=== PATIENT | male | born 1945 | race Hispanic/Latino ===

== ENCOUNTER 2017-05-15 11:18 | Day surgery (SDC) | payer MEDICARE ==
[2017-05-14 16:26] VITALS: BP 157/68
[2017-05-14 16:34] LABS: APPEARANCE,URINE Clear (CLEAR); BILIRUBIN,URINE Negative (NEGATIVE); COLOR,URINE Yellow (YELLOW); GLUCOSE, URINE (UA) Negative (NEGATIVE); KETONES,URINE Negative (NEGATIVE); LEUKOCYTE ESTERASE ,URINE Negative (NEGATIVE); NITRATE,URINE Negative (NEGATIVE); OCCULT BLOOD,URINE Negative (NEGATIVE); PH,URINE 5.5 (5.0-8.0); PROTEIN,URINE Negative (NEGATIVE)
[2017-05-14 16:35] LABS: BASOPHILS % (AUTO) 0.9 % (0.0-5.0); EOSINOPHILS % (AUTO) 3.7 % (0.0-8.0); HEMATOCRIT 38.9 % (42-54); LYMPHOCYTES % (AUTO) 33.9 % (21.0-51.0); MEAN CORPUSCULAR HEMOGLOBIN 32.5 pg (27.0-33.0); MEAN CORPUSCULAR HGB CONC 36.1 g/dL (32.0-36.0); NEUTROPHILS % (AUTO) 54.5 % (40.0-77.0); PLATELET COUNT (AUTO) 185 K/uL (130-400); RED BLOOD CELL COUNT(AUTO) 4.32 MIL/uL (4.50-6.20); RED CELL DISTRIBUTION WIDTH 12.9 % (11.0-15.5); WHITE BLOOD COUNT (AUTO) 6.2 K/uL (4.8-10.8)
[2017-05-14 16:42] LABS: CREATININE 1.2 mg/dL (0.5-1.5); POTASSIUM 3.7 mmol/L (3.5-5.1)
[2017-05-14 17:19] LABS: INR 1.06 (0.85-1.15); PROTHROMBIN TIME 10.9 SEC (9.6-11.6)
[2017-05-14 17:20] LABS: PARTIAL THROMBOPLASTIN TIME 26.3 SEC (26.3-35.5)
[2017-05-15] VITALS (17 sets, daily range): BP systolic 114–156; BP diastolic 62–84
[~2017-05-15] VITALS: Ht 171.4 cm; Wt 97.9 kg
[2017-05-15] MEDS: CEFAZOLIN SODIUM 1 GM VIAL IVP ONE ×2 (08:00→14:18)
[~2017-05-15 11:18] MED LIST: ACET-66 PO; ENAL10TA PO; OXYC5CAP19 PO; RIVA10TA PO; TERA5CAP4 PO; VIT D3 PO; WATER FOR INJECTION,STERILE 20 ML VIAL IJ ONE
[2017-05-15] MEDS ORDERED: LACTATED RINGERS 1000ML 1,000 ML IV ONE (12:05)
[2017-05-15] MEDS ORDERED: CEFAZOLIN SODIUM 1 GM VIAL ONE (12:07)
[2017-05-15] MEDS ORDERED: CHOL20004 PO (12:23)
[2017-05-15] MEDS ORDERED: TERA10CA4 PO (12:23)
[2017-05-15] MEDS ORDERED: ENAL20TA PO (12:23)
[2017-05-15] MEDS ORDERED: LIDOCAINE PF 2% 5ML ABBOJECT ONE (12:32)
[2017-05-15] MEDS ORDERED: DEXAMETHASONE SOD PHOSPHATE 10MG/ML 1ML VIAL ONE (12:32)
[2017-05-15] MEDS ORDERED: GLYCOPYRROLATE 0.2 MG/ML 5 ML VIAL ONE ×2 (12:32→17:21)
[2017-05-15] MEDS ORDERED: MIDAZOLAM HCL 1 MG/ML 2ML VIAL ONE (12:32)
[2017-05-15] MEDS ORDERED: PROPOFOL 10 MG/ML 20ML VIAL IV ONE (12:32)
[2017-05-15] MEDS ORDERED: FENTANYL CITRATE PF 50 MCG/1 ML 2ML VIAL ONE (12:33)
[2017-05-15] MEDS ORDERED: OXYCODONE HCL 10 MG TAB.SR.12H PO ONE (13:29)
[2017-05-15] MEDS ORDERED: KETOROLAC TROMETHAMINE 15MG/ML ONE (13:29)
[2017-05-15] MEDS ORDERED: ACETAMINOPHEN EXTRA STRENGTH 500 MG TABLET ONE (13:29)
[2017-05-15] MEDS ORDERED: CELECOXIB 200 MG CAP ONE (13:29)
[2017-05-15] MEDS ORDERED: TRANEXAMIC ACID 1000MG/10ML IV ONE (14:14)
[2017-05-15] MEDS: CEFAZOLIN SODIUM 1 GM VIAL ONE ×2 (14:44→14:45)
[2017-05-15] MEDS ORDERED: MEPERIDINE-PF 25 MG/ML SYG ONE (16:26)
[2017-05-15] MEDS ORDERED: HYDR-309 PO (17:28)
[2017-05-15] MEDS ORDERED: CEPH-578 PO (17:29)
[2017-05-15] MEDS ORDERED: NAPR375T6 PO (17:30)
== END 2017-05-15 18:32 | disposition home or self-care (01) ==
LOC: DAHIP 11:18 → DAH 11:18 → UNDOADMIN 11:18 → EDSTATUS 16:00 → DAH 18:26
PROVIDERS: ATTEND Orthopaedic Surgery
DX: M75.101 Unspecified rotator cuff tear or rupture of right shoulder, not specified as traumatic (principal); F43.10 Post-traumatic stress disorder, unspecified; I10 Essential (primary) hypertension; I49.3 Ventricular premature depolarization; E66.01 Morbid (severe) obesity due to excess calories; M25.569 Pain in unspecified knee; Z79.899 Other long term (current) drug therapy; Z98.890 Other specified postprocedural states; Z96.653 Presence of artificial knee joint, bilateral; Z79.891 Long term (current) use of opiate analgesic; Z82.3 Family history of stroke; Z83.3 Family history of diabetes mellitus; Z82.49 Family history of ischemic heart disease and other diseases of the circulatory system; Z79.01 Long term (current) use of anticoagulants
CPT/HCPCS: 23120; 23130; 23412; 36415; 80048; 81003; 82948; 85025; 85610; 85730; 96374; A4218; A4565; A4649 ×3; A4930 ×3; A6206; C1763; G0168; J0690 ×2; J1100; J1885; J2001; J2175; J2250; J2704; J3010; J3490 ×3; J7120